=== PATIENT | female | born 1945 | race Caucasian/White ===

== ENCOUNTER 2022-01-11 14:05 | Emergency (ER) | payer MEDICARE, MEDICAID ==
[2022-01-11 15:31] VITALS: BP 152/80; PULSE 77
[2022-01-11] MEDS ORDERED: fentaNYL 100 MCG/2 ML SDV IVPUSH ONE ×2 (16:16→16:32)
[2022-01-11] MEDS ORDERED: Ondansetron 4 MG/2 ML SDV IVPUSH ONE (16:16)
== END 2022-01-11 18:20 | disposition home or self-care (01) ==
LOC: DL.ED 14:05
DX: S32.10XA Unspecified fracture of sacrum, initial encounter for closed fracture (principal); K21.9 Gastro-esophageal reflux disease without esophagitis; E66.9 Obesity, unspecified; Z68.37 Body mass index [BMI] 37.0-37.9, adult; Z88.0 Allergy status to penicillin; Z88.5 Allergy status to narcotic agent; Z91.040 Latex allergy status; Z91.048 Other nonmedicinal substance allergy status; Z79.899 Other long term (current) drug therapy; X50.0XXA Overexertion from strenuous movement or load, initial encounter
CPT/HCPCS: 73700-LT; 96374; 96375; 99283; 99283-25; J2405; J3010